=== PATIENT | female | born 1990 | race Two or more races ===

== ENCOUNTER 2024-10-21 17:30 | Emergency (ER) | payer MEDICAID, SELFPAY ==
[2024-10-21 17:33] VITALS: PULSE 87; RESP 18; O2SAT 99; BMI 49.9
[2024-10-21 17:54] VITALS: BP 132/82; PULSE 88; RESP 20; TEMP 36.6; O2SAT 96
--- NOTE | 2024-10-21 18:04 | XR_ITS ---
Examination: CT brain head without contrast. 2-D sagittal coronal reconstructions Date and time of exam:October 21, 2024 1812 hrs. Indications: Sudden onset headaches dizziness beginning today CTDI: vol (mGy):48.8 DLP: (mGycm):958 Technique: Multiple CT axial sections of the brain have been obtained, 5 mm slice thickness. Contrast has not been administered. 2-D sagittal, coronal reconstructions have been obtained Low dose protocols were performed. One or more of the following dose reduction techniques were used; automated exposure control, adjustment of the mA and/or KV according to patient size, use of iterative reconstruction technique. Findings: No significant ventricular enlargement. Intra-axial or extra-axial hemorrhage density is not seen. No mass effect or midline shift Basal cisterns are not remarkable. Fourth ventricle is midline. Cranial vault intact. Impression: Negative for acute hemorrhage, mass effect or midline shift As clinically warranted, if symptoms persist, consider brain MRI follow-up
--- NOTE | 2024-10-21 18:05 | PD.EDRME ---
Rapid Medical Screening Exam RME Arrival date/time: 10/21/24 17:30 33-year-old female presents to the emergency room today for complaints of headache and dizziness today Chief Complaint: Dizziness Vital signs: Vital Signs Temperature 97.9 F 10/21/24 17:54 Pulse Rate 88 10/21/24 17:54 Respiratory Rate 20 10/21/24 17:54 Blood Pressure 132/82 H 10/21/24 17:54 Pulse Oximetry (%) 96 10/21/24 17:54 Oxygen Delivery Method Room Air 10/21/24 17:54
[2024-10-21 18:14] LABS: Collection Type, Urine Clean Catch
[2024-10-21 18:19] LABS: Bacteria,Urine Rare; Bilirubin,Urine Negative (Negative); Blood,Urine 1+ (Negative); Clarity,Urine Turbid (Clear/Hazy); Color,Urine Lt-Yellow (Lt Yel-Yel); Culture Indicated,Urine Not Indicated; Glucose, Urine Negative (Negative); Hyaline Casts,Urine < 1 /hpf (0-1); Ketones,Urine Negative (Negative); Leukocyte Esterase,Urine Positive (Negative); Nitrite,Urine Negative (Negative); Protein,Urine Negative (Neg - Trace); RBC,Urine 4 /hpf (0-3); Specific Gravity,Urine 1.019 (1.001-1.035); Squamous Epithelial Cell,Urine 14 /hpf (0-5); Urobilinogen,Urine Negative mg/dL (0.0-1.0); WBC,Urine 4 /hpf (0-5)
[2024-10-21 18:20] LABS: HCG Qualitative,Urine Negative
[2024-10-21 18:38] LABS: Basophils # (Auto) 0.1 Thou/mm3 (0.0-0.2); Basophils % (Auto) 1 % (0-2.5); Eosinophils # (Auto) 0.2 Thou/mm3 (0.0-0.5); Eosinophils % (Auto) 2 % (0-10); Hematocrit 37.7 % (36.0-46.0); Hemoglobin 12.2 g/dL (12.0-16.0); Immature Granulocytes % (Auto) 1 % (0-0); Immature Granulocytes Auto 0.05 Thou/mm3 (0.00-0.00); Lymphocytes # (Auto) 2.5 Thou/mm3 (1.0-4.8); Lymphocytes % (Auto) 23 % (10-50); Mean Corpuscular HGB Conc 32.4 g/dl (31.0-37.0); Mean Corpuscular Volume 80 fL (80-100); Monocytes # (Auto) 0.7 Thou/mm3 (0.0-0.8); Monocytes % (Auto) 6 % (0-12); Neutrophils # (Auto) 7.6 Thou/mm3 (1.8-7.7); Neutrophils % (Auto) 69 % (37-80); Nucleated Red Blood Cell % 0 /100 WBC (0); Platelet Count 330 Thou/mm3 (140-440); Red Blood Count 4.69 Miln/mm3 (4.00-5.20)
[2024-10-21 18:58] LABS: Alanine Aminotransferase 46 U/L (10-49); Albumin, Serum 4.4 gm/dL (3.5-5.0); Albumin/Globulin Ratio 1.3 (1.2-2.2); Alkaline Phosphatase 89 U/L (46-116); Anion Gap 8 (7-16); Aspartate Amino Transferase 58 U/L (0-34); BUN/Creatinine Ratio 16 Ratio (12-20); Bilirubin,Total 0.2 mg/dL (0.3-1.2); Blood Urea Nitrogen 13 mg/dL (9-23); Calcium 9.4 mg/dL (8.3-10.6); Calcium (Corrected) 9.4 mg/dL (8.5-10.1); Chloride 104 mMol/L (98-107); Creatinine (Component) 0.8 mg/dL (0.6-1.3); Estimated Creatinine Clearance 126.9 mL/min (>60); Globulin 3.3 gm/dL (2.3-3.5); Glucose 96 mg/dL (74-106); Osmolality,Calculated 281 (275-295); Potassium 4.3 mMol/L (3.4-5.1); Sodium 141 mMol/L (136-145); Total Protein 7.7 gm/dL (5.7-8.2); Troponin I < 0.002 ng/mL (0.0-0.045); eGFR > 60 See Note
--- NOTE | 2024-10-21 19:21 | EDNOTE_ITS ---
ED Dizzyness RME/HPI General Chief Complaint: Dizziness Stated Complaint: DIZZINESS Time Seen by Provider: 10/21/24 18:35 Arrival date/time: 10/21/24 17:30 RME / HPI RME / HPI Narrative: 10/21/24 17:30 33-year-old female presents to the emergency room today for complaints of headache and dizziness today This section includes all my notes and documentations, including HPI, PE, and ED course. Graeme Somers MD HPI: 33-year-old female here to be evaluated with dizziness that started at work about 6 hours ago. She describes feeling seasick. With nausea. And headache. No speech or vision impairment. No loss of power in the arms or leg. No chest pain or shortness of breath. No fever or chills. No other complaints. ROS: All negative except as documented in HPI. Physical Exam: General: Alert and oriented. Appears uncomfortable. Eyes: Conjunctivae and lids clear. EOMI. PERRL. ENT: No nasal congestion. Pharynx normal. Tympanic membrane normal bilaterally. Neck: Supple. No carotid bruit. Heart: RRR. Lungs: No respiratory distress. Good air movement. No rhonchi, wheezing, rales. Abdomen: Soft and nontender. Normal bowel sounds. No distension. No rebound or guarding. Skin: Warm and dry. Neuro: Alert and oriented X 3. Cranial Nerves II-XII grossly intact. No peripheral motor deficits. I reviewed all diagnostic test results. My review of the head CT report is no acute findings. Blood tests and urine tests unremarkable. At this point, diagnoses include vertigo. Treatment here included meclizine and Zofran and scopolamine patch. Significant improvement noted. Recommended more outpatient workup. Based on my best medical judgment, made decision no further evaluation or treatment indicated at this time. Patient understands and agrees to the discharge instructions customized and printed, see below. Discharge instructions from Dr. Somers: ? After extensive evaluation, there is no life-threatening condition.? Such as stroke or brain tumor or heart attack. -- Your severe symptoms are due to vertigo.? This is an inner ear problem that makes you feel like you are drunk or seasick.? See attached handout. -- Use scopolamine patch and/or meclizine for your severe symptoms. -- And Zofran for nausea/vomiting.? And increase oral fluid to prevent dehydration.? Maintain clear urine.? If dark or yellow, increase oral fluid. -- And do everything very slowly.? Including moving your head.? And when you sit up or stand up, wait a minute before you progress.? -- See your private doctor on 10/23/2024 for recheck and further care. If needed, ask to help you get more care not available here in the ER.? Such as MRI imaging of your brain, physical therapy, table tilt test, and referrals to see specialists (such as neurologist and ENT specialist). -- Read attached handout.? Seek immediate medical care with worsening or with any concerns. Graeme Somers MD Related Data Previous Rx's ?Medication ?Instructions ?Recorded dicyclomine 20 mg tablet 20 mg PO QID PRN abdominal p ain 12/05/23 #30 tabs ibuprofen 800 mg tablet 800 mg PO TID PRN pain #30 t abs 12/05/23 meclizine 25 mg tablet 25 mg PO BID PRN dizziness # 20 tabs 10/21/24 ondansetron 4 mg disintegrating 4 mg PO TID PRN nausea and 10/21/24 tablet vomiting 30 days #10 tabs scopolamine base 1 mg over 3 days 1 mg topical .q72 ho urs PRN 10/21/24 transdermal patch (Transderm-Scop) dizziness or vertig o #4 ea Allergies Allergy/AdvReac Type Severity Reaction Status Date / Time No Known Allergies Allergy Verified 10/21/24 17:39 Course Quality Measures none Orders Category Date Time Status CT head/brain wo con Stat Exams 10/21/24 18:04 Completed CBC Stat Lab 10/21/24 18:18 Completed Comprehensive Metabolic Panel Stat Lab 10/21/24 18:18 Completed HCG Qualitative,Urine Stat Lab 10/21/24 18:09 Completed Troponin I Stat Lab 10/21/24 18:18 Completed UA, C/S IF [Urinalysis, C/S if Indicated] Stat Lab 10/21/24 18:09 Completed Meclizine HCl [Antivert] Med 10/21/24 19:20 Discontinued 25 mg PO X1 ONE Ondansetron Odt [Zofran Odt] Med 10/21/24 19:20 Discontinued 4 mg PO X1 ONE Scopolamine [Transderm-Scop Patch] Med 10/21/24 19:20 Discontinued 1 mg TOP X1 ONE Vital Signs Vital signs: Vital Signs Temperature 97.9 F 10/21/24 17:54 Pulse Rate 88 10/21/24 17:54 Respiratory Rate 20 10/21/24 17:54 Blood Pressure 132/82 H 10/21/24 17:54 Pulse Oximetry (%) 96 10/21/24 17:54 Oxygen Delivery Method Room Air 10/21/24 17:54 Dizziness Patient data External records reviewed:: [facility] previous records Clinical information provided by:: patient Social determinants that could affect healthcare access:: none Patient has the following chronic illnesses:: None How is presenting disease/condition affected by chronic disease/condition?: no chronic disease Evaluation data The following diagnostics were reviewed and interpreted by me:: lab results and radiology exam(s) Lab and/or radiology exams considered but not ordered:: None Interpretation Summary: Normal diagnostics. Medications / Prescriptions Medications or Prescriptions considered but not ordered:: None Medication administrations:: Medication Administration History Discontinued Medications Meclizine HCl (Meclizine Hcl 25 Mg Tablet) 25 mg PO X1 ONE Stop: 10/21/24 19:21 Last Admin: 10/21/24 19:33 Dose: 25 mg Documented By: DAVID Ondansetron HCl (Ondansetron Odt 4 Mg Tabrap) 4 mg PO X1 ONE; Protocol Stop: 10/21/24 19:21 Last Admin: 10/21/24 19:33 Dose: 4 mg Documented By: DAVID Scopolamine (Scopolamine 1 Mg Tdsy) 1 mg TOP X1 ONE Stop: 10/21/24 19:21 Last Admin: 10/21/24 19:35 Dose: 1 mg Documented By: DAVID Meclizine and Zofran and scopolamine patch Consultations Consultation(s) initiated? (list below): No Diagnosis Dizziness Differential Diagnosis: adverse reaction to drug, benign paroxysmal positional vertigo, orthostatic hypotension, vertebral basilar insufficiency, cerebrovascular accident, acute vestibular neuronitis and transient cerebral ischemia Most likely diagnosis given after review of the tests above:: Vertigo Admission Indicated Admission indicated?: not indicated Explain why admission is indicated or not indicated:: With significant improvement, there was no indication for admission. Admission Request Was there a request for admission?: No Disposition Plan Disposition Plan: Discharge Discharge Attestation Discharge Attestation: The patient and all family members were given an opportunity to ask questions and understood the discharge instructions. Discharge instructions specifically effects, indications for sooner follow up or return to the emergency department, and the expected course of current diagnosis. Patient condition: Stable Discharge Plan Plan Patient Disposition: HOME (Self Care) Prescriptions/Referrals Prescriptions/Med Rec: New meclizine 25 mg tablet 25 mg PO BID PRN (Reason: dizziness) Qty: 20 0RF scopolamine base [Transderm-Scop] 1 mg over 3 days patch 3 day 1 mg topical .q72 hours PRN (Reason: dizziness or vertigo) Qty: 4 0RF ondansetron 4 mg tablet,disintegrating 4 mg PO TID PRN (Reason: nausea and vomiting) 30 Days Qty: 10 0RF No Action dicyclomine 20 mg tablet 20 mg PO QID PRN (Reason: abdominal pain) Qty: 30 0RF ibuprofen 800 mg tablet 800 mg PO TID PRN (Reason: pain) Qty: 30 0RF Referrals: Jean-Pierre Hinojosa MD [Primary Care Provider] - In 1 week Problem List Clinical Impression: Vertigo Patient/Caregiver Discharge Instructions Discharge Activity: activity as tolerated Education Materials: ED Vertigo, Unspecified Additional Instructions: Discharge instructions from Dr. Somers: ? After extensive evaluation, there is no life-threatening condition.? Such as stroke or brain tumor or heart attack. -- Your severe symptoms are due to vertigo.? This is an inner ear problem that makes you feel like you are drunk or seasick.? See attached handout. -- Use scopolamine patch and/or meclizine for your severe symptoms. -- And Zofran for nausea/vomiting.? And increase oral fluid to prevent dehydration.? Maintain clear urine.? If dark or yellow, increase oral fluid. -- And do everything very slowly.? Including moving your head.? And when you sit up or stand up, wait a minute before you progress.? -- See your private doctor on 10/23/2024 for recheck and further care. If needed, ask to help you get more care not available here in the ER.? Such as MRI imaging of your brain, physical therapy, table tilt test, and referrals to see specialists (such as neurologist and ENT specialist). -- Read attached handout.? Seek immediate medical care with worsening or with any concerns. Print Language: Ghanaian Stand Alone Forms: Ashley Award Info., Patient Portal Info Letter
[2024-10-21 19:30] VITALS: BP 128/76; PULSE 76; RESP 16; TEMP 36.7; O2SAT 99
[2024-10-21] MEDS: ONDANSETRON ODT 4 MG TABRAP PO (19:33)
[2024-10-21] MEDS: MECLIZINE HCL 25 MG TABLET PO (19:33)
[2024-10-21] MEDS: SCOPOLAMINE 1 MG TDSY TOP (19:35)
== END 2024-10-21 19:52 | disposition home or self-care (01) ==
PROVIDERS: Nurse Practitioner Primary Care; Emergency Provider Emergency Medicine; PCP Family Medicine
DX: R42 Dizziness and giddiness (principal)
CPT/HCPCS: 36415; 70450; 80053; 81001; 81025; 84484; 85025; 99284; Q0162; A9270